=== PATIENT | female | born 1960 | race Caucasian/White ===

== ENCOUNTER → 2016-08-29 | Outpatient (CLI) | payer OTHER | LOC: RAD 10:42 | PROVIDERS: ATTEND Internal Medicine | DX: G90.01 Carotid sinus syncope (principal) | CPT/HCPCS: 70498; 82565 ==

== ENCOUNTER → 2016-10-16 | Outpatient (CLI) | payer OTHER | LOC: RAD 11:29 | PROVIDERS: ATTEND Internal Medicine | DX: M54.12 Radiculopathy, cervical region (principal); M50.20 Other cervical disc displacement, unspecified cervical region; M48.02 Spinal stenosis, cervical region; R93.8 Abnormal findings on diagnostic imaging of other specified body structures | CPT/HCPCS: 72141 ==

== ENCOUNTER → 2018-01-24 | Outpatient (CLI) | payer OTHER ==
[2018-01-24 09:12] LABS: CHOLESTEROL 154.57 mg/dL (0-200); TRIGLYCERIDES 69 mg/dL (<150)
[2018-01-24 09:23] LABS: DIRECT LDL 55 mg/dL (<100)
[2018-01-24 09:27] LABS: T3 UPTAKE 31.2 %
== END ==
LOC: OD 07:43
PROVIDERS: ATTEND Specialist
DX: Z13.1 Encounter for screening for diabetes mellitus (principal); Z13.220 Encounter for screening for lipoid disorders; Z13.29 Encounter for screening for other suspected endocrine disorder
CPT/HCPCS: 36415; 80061; 83036; 84436; 84439; 84443; 84479

== ENCOUNTER → 2018-03-19 | Outpatient (CLI) | payer OTHER | LOC: OD 08:08 | PROVIDERS: ATTEND Specialist | DX: E03.9 Hypothyroidism, unspecified (principal) | CPT/HCPCS: 36415; 84443 ==

== ENCOUNTER 2020-06-13 07:06 | Emergency (ER) | payer OTHER ==
--- NOTE | 2020-06-13 08:34 | RADIOLOGY REPORT (SQ) ---
EXAM DESCRIPTION: CHEST 2 VIEWS IMAGES COMPLETED DATE/TIME: 06/13/2020 8:20 am REASON FOR STUDY: chest pain COMPARISON: None. EXAM PARAMETERS: NUMBER OF VIEWS: two views TECHNIQUE: Digital Frontal and Lateral radiographic views of the chest acquired. RADIATION DOSE: NA LIMITATIONS: none FINDINGS: LUNGS AND PLEURA: No opacities, masses or pneumothorax. No pleural effusion. MEDIASTINUM AND HILAR STRUCTURES: No masses or contour abnormalities. HEART AND VASCULAR STRUCTURES: Heart normal size. No evidence for failure. BONES: No acute findings. HARDWARE: None in the chest. OTHER: No other significant finding. IMPRESSION: NO ACUTE RADIOGRAPHIC FINDING IN THE CHEST. TECHNICAL DOCUMENTATION: JOB ID: [id number] [employer]- All Rights Reserved Reading location - IP/workstation name: [email or web address]
[2020-06-13 08:44] LABS: ABSOLUTE LYMPHOCYTES (AUTO) 0.6 10^3/uL (0.5-4.7); ABSOLUTE MONOCYTES (AUTO) 0.1 10^3/uL (0.1-1.4); BASOPHILS % (AUTO) 0.3 % (0-2); EOSINOPHILS % (AUTO) 0.1 % (0-6); HEMOGLOBIN 13.9 g/dL (12.0-15.5); LYMPHOCYTES % (AUTO) 10.3 % (13-45); MEAN CORPUSCULAR HEMOGLOBIN 29.5 pg (27.0-33.4); MEAN CORPUSCULAR HGB CONC 33.9 g/dL (32.0-36.0); MEAN CORPUSCULAR VOLUME 87 fl (80-97); MONOCYTES % (AUTO) 2.4 % (3-13); PLATELET COUNT 238 10^3/uL (150-450); RED BLOOD COUNT 4.72 10^6/uL (3.72-5.28); RED CELL DISTRIBUTION WIDTH 12.3 % (11.5-14.0); SEGMENTED NEUTROPHILS % (AUTO) 86.9 % (42-78); TOTAL CELLS COUNTED % (AUTO) 100 %; WHITE BLOOD COUNT 5.7 10^3/uL (4.0-10.5)
[2020-06-13 09:02] LABS: ALBUMIN 4.8 g/dL (3.5-5.0); ALKALINE PHOSPHATASE 72 U/L (38-126); ANION GAP 8 (5-19); ASPARTATE AMINO TRANSFERASE 25 U/L (14-36); BILIRUBIN,TOTAL 0.3 mg/dL (0.2-1.3); BLOOD UREA NITROGEN 11 mg/dL (7-20); CALCIUM 9.8 mg/dL (8.4-10.2); CARBON DIOXIDE 28 mmol/L (22-30); CHLORIDE 103 mmol/L (98-107); GLUCOSE 138 mg/dL (75-110); POTASSIUM 4.4 mmol/L (3.6-5.0); TOTAL PROTEIN 7.3 g/dL (6.3-8.2)
--- NOTE | 2020-06-13 09:21 | ER Document Report ---
ED Cardiac - General Chief Complaint: Chest Pressure Stated Complaint: CHEST PAIN Time Seen by Provider: 06/13/20 08:07 Primary Care Provider: THOMAS JOE MD [Primary Care Provider] - Follow up in 1 week Notes: Patient is a 59-year-old female who presents to the emergency department with a "uneasy feeling" in her chest. Patient has history of inappropriate sinus tachycardia. States that around 2300 last night, she had episodes of her heart rate being in the 90s. She felt weak and had some "chest tightness." This morning she had another episode around 6:00 in the morning. Patient is currently on metoprolol 150 mg, Rouvastatin, multivitamin, levothyroxine. States that she has not followed up with her manager of construction in a few years. TRAVEL OUTSIDE OF THE [place] IN LAST 30 DAYS: No - Related Data Allergies/Adverse Reactions: amoxicillin [Amoxicillin] Allergy (Verified 06/13/20 07:49) ITCH PALMS/TONGUE SWELLS Home Medications: Metoprolol 100 mg Past Medical History - General Information source: Patient - Social History Smoking Status: Never Smoker Chew tobacco use (# tins/day): No Drug Abuse: None Family History: Reviewed & Not Pertinent Patient has homicidal ideation: No - Past Medical History Cardiac Medical History: Denies: Hx Heart Attack, Hx Hypertension Pulmonary Medical History: Denies: Hx Asthma Neurological Medical History: Denies: Hx Cerebrovascular Accident, Hx Seizures GI Medical History: Denies: Hx Hepatitis, Hx Hiatal Hernia, Hx Ulcer Infectious Medical History: Denies: Hx Hepatitis Past Surgical History: Denies: Hx Hysterectomy, Hx Mastectomy, Hx Open Heart Surgery, Hx Pacemaker Review of Systems - Review of Systems Notes: REVIEW OF SYSTEMS: CONSTITUTIONAL : Denies recent illness. Denies recent unintentional weight loss. Denies fever, chills, or sweats. EENT: Denies eye, ear, throat, or mouth pain, discharge, or symptoms. Denies nasal or sinus congestion. CARDIOVASCULAR: See HPI. RESPIRATORY: Denies shortness of breath, cough, congestion, difficulty breathing, or wheezing. GASTROINTESTINAL: Denies nausea, vomiting, and diarrhea. Denies abdominal pain. Denies constipation. GENITOURINARY: Denies difficulty urinating, burning, blood in urine, urgency or frequency. MUSCULOSKELETAL: Denies neck and back pain. Denies joint pain or swelling. SKIN: Denies rash, itchiness, or lesions HEMATOLOGIC : Denies easy bruising or bleeding. LYMPHATIC: Denies swollen, painful, enlarged glands. NEUROLOGICAL: Denies no numbness or tingling denies weakness. Denies headache. Denies altered mental status. Denies alteration in speech. PSYCHIATRIC: Denies stress, anxiety, alteration in sleep patterns, or depre ssion. All other systems reviewed and negative. Physical Exam - Vital signs Vitals: Temp Pulse Resp BP Pulse Ox 98.5 F 76 16 122/60 98 06/13/20 07:16 06/13/20 07:16 06/13/20 07:16 06/13/20 07:16 06/13/20 07:16 - Notes Notes: PHYSICAL EXAMINATION: GENERAL: Appears well, healthy, well-nourished, no acute distress. HEAD: Normocephalic, atraumatic. EYES: PERRL, conjunctiva normal, all extraocular movements intact, sclera nonicteric ENT: Moist mucous membranes. NECK: Supple, no noticeable swelling, redness, rash. Normal range of motion. LUNGS: Equal breath sounds bilaterally and clear to auscultation. No wheezes rales or rhonchi. CARDIOVASCULAR: S1-S2, regular rate, regular rhythm. Radial pulses 2+, normal. ABDOMEN: Normoactive bowel sounds. Soft, nontender, no guarding, no rebound tenderness, and no masses palpated. EXTREMITIES: Normal strength and range of motion, no pitting or edema. No cyanosis. NEUROLOGICAL: Moves all extremities upon command. Strength 5/5 in all extremities. PSYCH: Normal mood, normal affect. SKIN: Warm, dry. No rash, lesions, ulcerations noted. Normal skin turgor. Course - Re-evaluation Re-evalutation: 06/13/20 10:06 Chest x-ray is unremarkable. Hematology is also unremarkable. No leukocytosis or anemia noted. D-dimer is negative. Chemistries are normal. LFTs are also normal. Magnesium is 1.9 and phosphorus is 3.8. Troponin is negative. BNP is 132. Thyroid studies are normal. 06/13/20 10:08 I spoke with [facility], who had a call back from the manager of construction on-call. We will also order second troponin. 06/13/20 11:20 Patient had another episode of feeling like her heart was racing. Patient had not taken her metoprolol this morning. Will order the dose of her metoprolol. Paged [facility] Merlene Gilliam again speak with the on-call manager of construction. 06/13/20 12:21 Paged [facility] Merlene Gilliam again, will await a call back. 06/13/20 12:[address] Mora. The patient did have Right bundle branch block. He recommends that the patient follow-up with her manager of construction. Discussed this with the patient. She is in agreement with this plan. Second troponin is negative. Have a low suspicion for any life-threatening etiology at this time. Follow-up precautions were given. Verbal discharge instructions were given to the patient. They verbalized understanding. They are stable for discharge. - Vital Signs Vital signs: Temp Pulse Resp BP Pulse Ox 98.5 F 76 14 97/57 L 98 06/13/20 12:17 06/13/20 07:16 06/13/20 12:17 06/13/20 12:17 06/13/20 12:17 - Laboratory Results Result Diagrams: 06/13/20 08:05 06/13/20 08:05 Laboratory Results Interpreted: 06/13/20 06/13/20 06/13/20 08:05 08:05 08:05 Lymph % (Auto) 10.3 L [place] % (Auto) 2.4 L Seg Neutrophils % 86.9 H Glucose 138 H NT-Pro-B Natriuret Pep 132 H Critical Laboratory Results Reviewed: No Critical Results - Radiology Results Critical Radiology Results Reviewed: No Critical Results - EKG Interpretation by Me Additional EKG results interpreted by me: 06/13/20 10:06 Sinus rhythm with right bundle branch block. Rate 71. VA 168; QRS 142; QT 420; QTc 457. No other EKG for comparison. Discharge - Discharge Clinical Impression: Chest tightness Condition: Stable Disposition: HOME, SELF-CARE Additional Instructions: You were seen today in the emergency department for chest tightness. Your work- up was normal. Call your manager of construction tomorrow and let them know that you are seen here in the emergency department. See if you can follow-up with them later on this week. Forms: Return to Work Referrals: THOMAS JOE MD [Primary Care Provider] - Follow up in 1 week
[2020-06-13 09:44] LABS: FREE T3 3.24 pg/mL (2.77-5.27); FREE T4 (FREE THYROXINE) 1.07 ng/dL (0.78-2.19)
[2020-06-13 09:57] LABS: THYROID STIMULATING HORMONE 2.52 uIU/mL (0.47-4.68)
[2020-06-13] MEDS ORDERED: METOPROLOL SUCCINATE 50 MG TAB.SR.24H PO ONE ×2 (11:14)
[2020-06-13 13:36] VITALS: BP 97/57
--- NOTE | 2020-06-13 22:40 | EKG REPORT ---
SEVERITY:- ABNORMAL ECG - SINUS RHYTHM RBBB AND LPFB : Confirmed by: Cadence Matute 13-Jun-2020 22:40:39
== END 2020-06-13 13:00 | disposition home or self-care (01) ==
LOC: ER 07:06
DX: R07.9 Chest pain, unspecified (principal); R00.0 Tachycardia, unspecified; R53.1 Weakness
CPT/HCPCS: 36415; 71046; 80053; 83735; 83880; 84100; 84439; 84443; 84481; 84484; 85025; 85379; 93005; 93010; 99285